=== PATIENT | female | born 2000 ===

== ENCOUNTER 2022-06-19 22:16 | Emergency (ER) | payer OTHER ==
[~2022-06-19] VITALS: Ht 172.7 cm; Wt 61.2 kg
== END 2022-06-20 00:35 | disposition home or self-care (01) ==
LOC: ER 22:16
DX: S90.01XA Contusion of right ankle, initial encounter (principal); W18.30XA Fall on same level, unspecified, initial encounter; Y93.9 Activity, unspecified; Y92.9 Unspecified place or not applicable; Y99.9 Unspecified external cause status